=== PATIENT | female | born 1955 | race Caucasian/White ===

== ENCOUNTER → 2022-08-20 10:12 | Outpatient (CLI) | payer MEDICARE, OTHER, SELFPAY ==
--- NOTE | ~2022-08-20 | DEXA_ITS ---
Bone Density Report Name: TASHA BOATENG Age: 67 Sex: Female Ethnicity: White Date of : 1955 Indication: osteopenia; seizure disorder; hysterectomy; postmenopausal Referring Provider: Gisela Srivastava Study: Bone densitometry was performed. Exam Date: August 20, 2022 Accession number: [id number] Bone Density: Region BMD T-score Z-score Classification AP Spine (L1-L4) 0.886 -1.5 0.4 Osteopenia Femoral Neck (Left) 0.639 -1.9 -0.3 Osteopenia Total Hip (Left) 0.789 -1.3 0.0 Osteopenia Femoral Neck (Right) 0.804 -0.4 1.2 Normal Total Hip (Right) 0.852 -0.7 0.5 Normal Total Hip Mean 0.821 -1.0 0.3 Normal World Health Organization criteria for BMD impression classify patients as: Normal (T-score at or above -1.0), Osteopenia (T-score between -1.0 and -2.5), or Osteoporosis (T-score at or below -2.5). 10-year Fracture Risk(1): Major Osteoporotic Fracture 10% Hip Fracture 1.5% Reported Risk Factors: [place] (), Neck BMD=0.639, BMI=24.9 (1) FRAX(R) Version 3.08. Fracture probability calculated for an untreated patient. Fracture probability may be lower if the patient has received treatment. Previous Exams: Region Exam Age BMD T-score BMD Change BMD Change Date g/cm2 vs Baseline vs Previous AP Spine(L1-L4) 08/20/2022 67 0.886 -1.5 -0.002 0.012 11/18/2018 63 0.874 -1.6 -0.014 -0.028* 11/09/2013 58 0.901 -1.3 0.013 0.013 04/22/2007 51 0.888 -1.4 Total Hip(Left) 08/20/2022 67 0.789 -1.3 -0.072* -0.060* 11/18/2018 63 0.848 -0.8 -0.013 0.051* 11/09/2013 58 0.797 -1.2 -0.064* -0.064* 04/22/2007 51 0.861 -0.7 Total Hip(Right) 08/20/2022 67 0.852 -0.7 -0.050* 0.008 11/18/2018 63 0.844 -0.8 -0.058* -0.035* 11/09/2013 58 0.879 -0.5 -0.023 -0.023 04/22/2007 51 0.903 -0.3 *Denotes significance at 95% confidence level, LSC for AP Spine = 0.022 g/cm2, LSC for Total Hip = 0.027 g/cm2 Clinical Information Provided by Patient: Has used the following medications: Vitamin D, Calcium Has the following medical conditions: Any Seizure Disorders, Hysterectomy Patient maximum height was 65 Menopause Age: 50 No regular weight bearing exercise Does not regularly consume dairy products Drinks caffeinated beverages Onset of menses at age 14 Number of children 3
== END ==
PROVIDERS: PCP Emergency Medicine
DX: Z13.820 Encounter for screening for osteoporosis (principal); M85.88 Other specified disorders of bone density and structure, other site; M85.852 Other specified disorders of bone density and structure, left thigh
CPT/HCPCS: 77080

== ENCOUNTER 2024-12-29 12:53 | Outpatient (CLI) | payer MEDICARE, OTHER, SELFPAY ==
--- NOTE | ~2024-12-29 | DEXA_ITS ---
Bone Density Report Name: TASHA BOATENG Age: 69 Sex: Female Ethnicity: White Date of : 1955 Indication: postmenopausal; screening for osteoporosis; parental hip fracture; height loss; cancer; seizure disorder; hysterectomy; Referring Provider: UNKNOWN, UNKNOWN Study: Bone densitometry was performed. Exam Date: December 29, 2024 Accession number: [id number] Bone Density: Region BMD T-score Z-score Classification AP Spine(L1-L4) 0.909 -1.3 0.7 Osteopenia Femoral Neck (Left) 0.630 -2.0 -0.3 Osteopenia Total Hip (Left) 0.752 -1.6 -0.1 Osteopenia Femoral Neck (Right) 0.682 -1.5 0.2 Osteopenia Total Hip (Right) 0.847 -0.8 0.6 Normal Total Hip Mean 0.799 -1.2 0.3 Osteopenia World Health Organization criteria for BMD impression classify patients as: Normal (T-score at or above -1.0), Osteopenia (T-score between -1.0 and -2.5), or Osteoporosis (T-score at or below -2.5). 10-year Fracture Risk(1): Major Osteoporotic Fracture 19% Hip Fracture 3.2% Reported Risk Factors: [place] (), Neck BMD=0.630, BMI=26.3, parental fracture (1) FRAX(R) Version 3.08. Fracture probability calculated for an untreated patient. Fracture probability may be lower if the patient has received treatment. Clinical Information Provided by Patient: Parent has had a hip fracture Has used the following medications: Calcium Has the following medical conditions: Any Seizure Disorders, Cancer, Hysterectomy Patient maximum height was 65 Menopause Age: 51 No regular weight bearing exercise Does not regularly consume dairy products Drinks caffeinated beverages Onset of menses at age 14 Number of children 3 Impression: The patient has low bone mass, based on the Left Femoral Neck T-score. The patient has an estimated ten-year risk of hip fracture of 3.2% and an estimated ten-year risk of major fracture of 19%, based on the WHO FRAX algorithm. The patient has risk factors, including: parental hip fracture. Discussion: BONE DENSITY IS LOW AT ONE OR MORE SKELETAL SITES. THE PATIENT'S BMD AND CLINICAL RISK FACTORS CONTRIBUTE TO THIS PATIENT'S INCREASED RISK OF FRACTURE. This patient's lowest T-score is low at one or more skeletal sites. It meets the World Health Organization's (WHO) criteria for “low bone mass” (T-score between -1.0 and -2.5). The patient's 10-year risk of hip fracture as calculated by FRAX exceeds the threshold where pharmacological therapy is recommended by the National Osteoporosis Foundation (NOF). However, all treatment decisions require clinical judgment and consideration of individual patient factors, including patient preferences, comorbidities, previous drug use, risk factors not captured in the FRAX model (e.g., frailty, falls, vitamin D deficiency, increased bone turnover, interval significant decline in bone density) and possible under or overestimation of fracture risk by FRAX. The patient should follow a healthful lifestyle (good nutrition with adequate calcium and vitamin D, and appropriate weight-bearing exercise). Follow-Up: Consider a repeat BMD and Vertebral Fracture Assessment (VFA) exam in 2 years or sooner if medically necessary, to reassess this patient's status. Reported by: PHOEBE on 12/29/2024 1:39:00 PM. Reviewed, dictated and finalized at location A.
--- OUTSIDE RECORDS SUMMARY | 2024-12-29 12:58 | XMS_ITS | Patient Health Record ---
Author Organization [facility] Address [address] [place], [place] [id number] Care Team Providers Care Barnworker Groom Name Role Phone FOX NICOLE Unavailable [phone] Katherine Romo Unavailable Unavailable Allergies Allergen (clinical drug ingredient) Drug/Non Drug Allergy documented on EMR Reaction Allergy Type Onset Date Status carbamazepine Tegretol XR rash Drug Allergy A ctive Reason For Referral No Information Medications Medication SIG (Take, Route, Frequency, Duration) Notes Start Date End Date Status 24 HR mirabegron 50 MG Extended Release Oral Tablet [Myrbetriq] ORAL 24 HR mirabegron 50 MG Extended Release Oral Tablet [Myrbetriq]Original Ivshmptrop80 HR mirabegron 50 MG Extended Release Oral Tablet [Myrbetriq] *Reorder from [employer] for eRx and Interaction Alerts* 11/28/2020 Active cetirizine hydrochloride 10 MG Oral Tablet [Zyrtec] ORAL cetirizine hydrochloride 10 MG Oral Tablet [Zyrtec]Original Medicationcetirizine hydrochloride 10 MG Oral Tablet [Zyrtec] *Reorder from [employer] for eRx and Interaction Alerts* 11/28/2020 Active Immunizations Vaccine Route Administration Date Status Comme nts Influenza, high dose seasonal Unknown 05/16/2023 Admini stered Vital Signs Height-cm 165.1 cm 05/23/2024 Weight-kg 70.31 kg 05/23/2024 Height 65 in 05/23/2024 Weight 155 lbs 05/23/2024 BMI 25.79 kg/m2 05/23/2024 Encounters Encounter Location Date Provider Diagnosis [facility] [address] [place], [place] [id number] 05/23/2024 FOX NICOLE Fungal infection of nail B35.1 ; Ingrowing nail L60.0 ; Cellulitis of right toe L03.031 ; Cellulitis of left toe L03.032 ; Pain in right toe(s) M79.674 and Pain in left toe(s) M79.675 [facility] [address] [id number] 06/06/2024 FOX NICOLE Ingrowing nail L60.0 and Encounter for other specified surgical aftercare Z48.89 [facility] [address] [id number] 06/02/2024 FOX NICOLE Assessments Encounter Date Diagnosis (ICD Code) Assessment Notes Treatment Notes Treatment Clinical Notes Section Notes 05/23/2024 Ingrowing nail (ICD-10 - L60.0) 05/23/2024 Fungal infection of nail (ICD-10 - B35.1) 06/06/2024 Ingrowing nail (ICD-10 - L60.0) 06/06/2024 Encounter for other specified surgical aftercare (ICD-10 - Z48.89) 05/23/2024 Cellulitis of right toe (ICD-10 - L03.031) 05/23/2024 Cellulitis of left toe (ICD-10 - L03.032) 05/23/2024 Pain in right toe(s) (ICD-10 - M79.674) 05/23/2024 Pain in left toe(s) (ICD-10 - M79.675) 05/23/2024 Other I discussed various treatment options to the patient for onychocryptosis. I discussed removal of the offending nail border and chemical matrixectomy to prevent regrowth. The patient decided on permanent removal of the nail border. The consent was signed and placed in the patients chart and all questions were answered. Following skin prep, the toe was injected with 3ccs of a 1:1 mixture of 0.5% marcaine plain and 1% lidocaine plain. A digital tournequet was applied and the offending nail was removed. Three applications of 89% phenol for 30 seconds each, were applied to the nail matrix to prevent regrowth. The digital tourniquet was released and the toe was cleansed with isopropyl alcohol. A dry sterile compressive dressing was applied and the patient was given soaking instructions. 06/06/2024 Other I advised the patient that no further treatment is necessary at this time. If the condition should worsen they should call the office. Plan Of Treatment No Information Insurance Providers Payer Name Payer Address Payer Phone Subscriber Number Group Number Insured Name Patient Relationship to Insured Coverage Start Date Coverage End Date Medicare Part B [facility] [address] [place] [phone] [id number] TASHA BOATENG Self - patient is the insured [place] [employer] [address] [place] [address] [id number] TASHA BOATENG Self - patient is the insured
--- OUTSIDE RECORDS SUMMARY | 2024-12-29 12:58 | XMS_ITS | Encounter Summary ---
Author Organization [facility] Address [address] [place] [address] Care Team Providers Care Procurement Professional Name Role Phone Katherine Romo MD Primary Care Provider [phone] Luke Floyd MD Unavailable [phone] Tylor Red MD Primary Care Provider + Iris Da Silva NP Primary Care Provid er Encounter Details Date Type Department Care Team (Late st Contact Info) Description 05/03/2021 Telephone [facility] Radiology [address] [place] [address] Mahendra Chilel MD PhD [address] [place] [address] Social History Tobacco Use Types Packs/Day Years Used Date Smoking Tobacco: Never Comments Unknown Sex and Gender Information Value Date Recorded Sex Assigned at Not on file 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 Gender Identity Not on file Sexual Orientation Not on file documented as of this encounter Plan of Treatment Not on file documented as of this encounter Visit Diagnoses Not on filedocumented in this encounter Care Teams Procurement Professional Relationship Specialty Start Date End Date Katherine Romo MD [address] [address] PCP - General 11/25/16 09/01/22 Tylor Red MD [address] [address] PCP - General Internal Medicine 09/02/22 09/22/24 Iris Da Silva NP [address] [address] PCP - General Family Medicine 09/23/24 Luke Floyd MD [address] [address] Consulting Physician Urology 06/25/22 documented as of this encounter
--- OUTSIDE RECORDS SUMMARY | 2024-12-29 12:58 | XMS_ITS | Referral Summary ---
Author Organization [facility] Address [address] [place] [address] Care Team Providers Care Medical Affairs Leader Name Role Phone Luke Floyd MD Unavailable [phone] Iris Da Silva NP Primary Care Provid er Encounters Date Type Department Care Team Description 10/20/2024 Orders Only Consultants in [address] [place] [phone] Gisela Srivastava MD Senile osteoporosis (Primary Dx) 10/19/2024 Telephone Consultants in [address] [place] [phone] Gisela Srivastava MD bone denisty from Last 3 Months Allergies Active Allergy Reactions Criticality Noted Date Comments Adhesive Tape-Silicones Unknown 12/06/2018 Carbamazepine Rash Medium 12/09/2018 Medications cyanocobalamin, vitamin B-12, 1,000 mcg tablet extended release Take 1,000 mcg by mouth nightly Active magnesium oxide 500 mg capsule 1 daily+1/2tab EOD Active calcium carbonate-vitam in D3 1,500 mg (600mg elemental) -800 unit per tablet Take 1 tablet by mouth daily Active rosuvastatin (CRESTOR) 10 mg tablet 02/07/2024 Active levETIRAcetam (KEPPRA) 1,000 mg tablet Take 1.5 tablets (1,500 mg total) by mouth 2 (two) times a day 270 tablet 3 03/30/2024 Active Active Problems Problem Noted Date Diagnosed Date S/P sacrocolpopexy 06/24/2022 Pre-diabetes 03/10/2022 Midline cystocele 01/31/2022 Overview (01/31/2022): Added automatically from request for surgery [id number] Uterovaginal prolapse, incomplete 01/31/2022 Overview (01/31/2022): Added automatically from request for surgery [id number] Female stress incontinence 01/31/2022 Overview (01/31/2022): Added automatically from request for surgery [id number] 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 Seizure disorder 09/10/2015 Primary malignant neoplasm of brain 08/25/2012 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 Immunizations Immunization Administration Dates Next Due Hep A, Adult 06/09/2014,11/23/2013 Hep A, Unspecified 11/23/2013 IPV 11/23/2013 Influenza, Quadrivalent, Rec ombinant, Egg Free, Preservative Free, Intramuscular 05/29/2017 Influenza, Quadrivalent, Spl it, Intramuscular 06/28/2021,06/22/2020,06/03/2019,06/06,06/17/2016 Influenza, Quadrivalent, Spl it, Preservative Free, Intramuscular 06/28/2021,06/22/2020,06/06/2018 Influenza, Trivalent, IM (MDV) 4,08/23/2013,08/27/2012,07/23 Influenza, Trivalent, Preser vative Free, Intramuscular 05/29/2017,05/17/2016,08/17/2013 Influenza, Unspecified 06/03/2022,05/29/2017 Meningococcal Polysaccharide (Menomune) 11/23/2013 Pfizer SARS-CoV-2 Monovalent Vaccination (12+ Yrs) PURPLE 11/05/2020,10/14/2020 Pfizer Sars-Cov-2 Bivalent V accination (12+ YRS) 06/03/2022 Pneumococcal Conjugate PCV 13 12/18/2015 Pneumococcal Conjugate Pcv20 02/04/2022 Polio, Unspecified 11/23/2013 Tdap 03/17/2023,08/27/2012 Yellow Fever 11/23/2013 ZOSTER LIVE 06/08/2015 Social History Tobacco Use Types Packs/Day Years Used Date Smoking Tobacco: Never Smokeless Tobacco: Never Tobacco Cessation:Counseling Given: Not Answered AUDIT-C Answer Date Recorded Q1: How often do you have a drink containing alcohol? Never 06/24/2022 Q2: How many drinks containi ng alcohol do you have on a typical day when you are drinking? Patient does not drink Q3: How often do you have si x or more drinks on one occasion? 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 Gender Identity Not on file Sexual Orientation Not on file Last Filed Vital Signs Vital Sign Reading Time Taken Comments Blood Pressure 122/83 03/30/2024 10:03 AM CDT Pulse 69 03/30/2024 10:03 AM CDT Temperature 36.3 C (97.3 F) 03/30/2024 10:03 AM CDT Respiratory Rate 18 03/30/2024 10:0 3 AM CDT Oxygen Saturation 96% 03/30/2024 10: 03 AM CDT Inhaled Oxygen Concentration - - Weight 68.9 kg (151 lb 12.8 oz) 024 10:03 AM CDT Height 165.1 cm (5' 5 ) 06/24/2022 6:34 AM SKIDDER DRIVER Body Mass Index 25.26 06/24/2022 6:34 AM SKIDDER DRIVER Plan of Treatment Not on file Medical Devices Implanted Type Area [employer] Social [employer] Tutor Device Identifier Shelf Expiration Date Model / Serial / Lot Shot Stats Dede Upsylon 35.4cm Elongation Profile Lightweight Large Pore Low [id number] - [id number] Implanted:Qty: 1 on 06/24/2022 by Luke Floyd MD at [facility] Mesh N/A: Pelvis [employer] Dede 04/16/2025 [id number] / / [id number] Pessary Ring Bladder [employer] Dede Obtryx Ii Precisionblue Advantage .15mm 22cm Sling Halo Needle [id number] - [id number] Implanted:Qty: 1 on 06/24/2022 by Luke Floyd MD at [facility] N/A: Pelvis [employer] Dede 02/24/2025 [id number] / / [id number] Procedures Procedure Name Priority Date/Time Associated Diagnosis Comments DIAGNOSTIC MAMMOGRAM BILATERAL W JUAN Schedule Routine, Read Routine (OP Routine) 06/10/2024 10:12 AM CDT Other abnormal and inconclusive findings on diagnostic imaging of breast from Last 3 Months or Most Recently Relevant to Health Maintenance Results * Diagnostic Mammogram Bilateral W Juan (06/10/2024 10:12 AM CDT) Anatomical Region Laterality Modality Breast Bilateral Mammography 06/10/2024 11:3 0 AM CDT Impressions 06/10/2024 11:34 AM CDT 1. A cluster of cysts and a complex cyst in the RIGHT breast are stable for 2 years and therefore benign. 2. No mammographic evidence of malignancy in either breast. OVERALL FINAL ASSESSMENT: BI-RADS Category 2: Benign. RECOMMENDATION: Annual screening mammography is recommended. Drs. Velazquez and Mckayla discussed the above findings and recommendations with the patient, who expressed her understanding of the management plan. Dictated by: Ivan Block MD The radiology attending physician has personally reviewed this study, and had reviewed and/or edited this written report and agrees with it. Electronically signed by: Safia Velazquez M.D. Narrative 06/10/2024 11:34 AM CDT EXAMINATION: BILATERAL DIGITAL DIAGNOSTIC MAMMOGRAM INCLUDING CAD AND BILATERAL DIGITAL BREAST TOMOSYNTHESIS; RIGHT BREAST SONOGRAM HISTORY: 68-year-old woman with history of multiple bilateral circumscribed masses with areas of focal asymmetry in the RIGHT breast at the 9:00 and 9:30 positions. COMPARISON: Diagnostic mammograms and ultrasound 06/10/2023, 12/10/2022, 05/28/2022. Screening mammograms 05/22/2022, 01/04/2021. TECHNIQUE: Full field digital mammographic views of BOTH breasts were performed, including computer aided detection (CAD) and BILATERAL digital breast tomosynthesis (DBT). Directed ultrasound evaluation of the RIGHT breast was performed. BREAST PARENCHYMAL COMPOSITION: There are scattered areas of fibroglandular density. MAMMOGRAM FINDINGS: There are fluctuating bilateral circumscribed masses. There is a stable focal asymmetry in the RIGHT breast at the 9:30 position at posterior depth. There is a stable oval circumscribed mass at 9 o'clock position in the RIGHT breast at mid depth. No new mass, architectural distortion, or calcifications suspicious for malignancy in either breast. SONOGRAM FINDINGS: In the RIGHT breast at the 9 o'clock position 3 cm from the nipple, there is a complex circumscribed, hypoechoic mass measuring 1.0 x 0.5 x 0.4 cm (previously 0.8 x 0.4 x 0.3 cm) felt to represent a cluster both cysts. The RIGHT breast at the 9:30 position 10 cm from the nipple, there is a oval circumscribed hypoechoic mass with posterior acoustic enhancement felt to represent a complex cyst measuring 0.5 x 0.2 x 0.4 cm (previously 0.5 x 0.5 x 0.4 cm). Procedure Note Safia Velazquez MD - 06/10/2024 EXAMINATION: BILATERAL DIGITAL DIAGNOSTIC MAMMOGRAM INCLUDING CAD AND BILATERAL DIGITAL BREAST TOMOSYNTHESIS; RIGHT BREAST SONOGRAM HISTORY: 68-year-old woman with history of multiple bilateral circumscribed masses with areas of focal asymmetry in the RIGHT breast at the 9:00 and 9:30 positions. COMPARISON: Diagnostic mammograms and ultrasound 06/10/2023, 12/10/2022, 05/28/2022. Screening mammograms 05/22/2022, 01/04/2021. TECHNIQUE: Full field digital mammographic views of BOTH breasts were performed, including computer aided detection (CAD) and BILATERAL digital breast tomosynthesis (DBT). Directed ultrasound evaluation of the RIGHT breast was performed. BREAST PARENCHYMAL COMPOSITION: There are scattered areas of fibroglandular density. MAMMOGRAM FINDINGS: There are fluctuating bilateral circumscribed masses. There is a stable focal asymmetry in the RIGHT breast at the 9:30 position at posterior depth. There is a stable oval circumscribed mass at 9 o'clock position in the RIGHT breast at mid depth. No new mass, architectural distortion, or calcifications suspicious for malignancy in either breast. SONOGRAM FINDINGS: In the RIGHT breast at the 9 o'clock position 3 cm from the nipple, there is a complex circumscribed, hypoechoic mass measuring 1.0 x 0.5 x 0.4 cm (previously 0.8 x 0.4 x 0.3 cm) felt to represent a cluster both cysts. The RIGHT breast at the 9:30 position 10 cm from the nipple, there is a oval circumscribed hypoechoic mass with posterior acoustic enhancement felt to represent a complex cyst measuring 0.5 x 0.2 x 0.4 cm (previously 0.5 x 0.5 x 0.4 cm). IMPRESSION: 1. A cluster of cysts and a complex cyst in the RIGHT breast are stable for 2 years and therefore benign. 2. No mammographic evidence of malignancy in either breast. OVERALL FINAL ASSESSMENT: BI-RADS Category 2: Benign. RECOMMENDATION: Annual screening mammography is recommended. Drs. Velazquez and Mckayla discussed the above findings and recommendations with the patient, who expressed her understanding of the management plan. Dictated by: Ivan Block MD The radiology attending physician has personally reviewed this study, and had reviewed and/or edited this written report and agrees with it. Electronically signed by: Safia Velazquez M.D. Tylor Red MD IMG MAMMO PROCEDURES Fin al Result from Last 3 Months or Most Recently Relevant to [place] [address] MEDICARE [facility] MEDICARE [facility] MEDIC[facility] [place] [address] [facility] MEDIC[facility] Advance Directives For more information, please contact: [phone] * Full Code (Latest Code Status on File) Date Activated Date Inactivated Comments 06/24/2022 1:33 PM 06/25/2022 9:19 PM Care Teams Medical Affairs Leader Relationship Specialty Start Date End Date Iris Da Silva NP PCP - General Family Medicine 09/23/24 Luke Floyd MD Consulting Physician Urology 06/25/22
--- OUTSIDE RECORDS SUMMARY | 2024-12-29 12:58 | XMS_ITS | Clinical Summary ---
Author Organization [facility] Address [address] [place] [address] Care Team Providers Care Supervisor Electronics Inspection Name Role Phone Luke Floyd MD Unavailable [phone] Iris Da Silva NP Primary Care Provid er Allergies Active Allergy Reactions Criticality Noted Date [...] (01/31/2022): Added automatically from request for surgery [id number] Uterovaginal prolapse, incomplete 01/31/2022 Overview (01/31/2022): Added automatically from request for surgery [id number] Female stress incontinence 01/31/2022 Overview (01/31/2022): Added automatically from request for surgery [id number] 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 Seizure disorder 09/10/2015 Primary malignant neoplasm of brain 08/25/2012 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 Encounters Date Type Department Care Team Description 10/20/2024 Orders Only Consultants in [address] [place] [address] Gisela Srivastava MD Senile osteoporosis (Primary Dx) 10/19/2024 Telephone Consultants in [address] [place] [phone] Gisela Srivastava MD bone denisty from Last 3 Months Immunizations Immunization Administration Dates Next Due Hep [...] 03/17/2023,08/27/2012 Yellow Fever 11/23/2013 ZOSTER LIVE 06/08/2015 Surgical History Surgery Date Site/Laterality Comments APPENDECTOMY CRANIOTOMY X2 for brain tumors RECONSTRUCTIVE SURGERY 08/17/2015 - 08/16/2016 scalp Medical History Medical History Date Comments Personal history of other sp ecified conditions History of fatigue - (Added by TW Conv) Other symptoms and signs inv olving cognitive functions and awareness Cognitive impairment - (Added by TW Conv) PONV (postoperative nausea and vomiting) Family History Medical History Relation Name Comments Prostate cancer Brother Family histo ry of prostate cancer - (Added by TW Conv) Prostate cancer Father Family histo ry of malignant neoplasm of prostate - (Added by TW Conv)/Family history of prostate cancer - (Added by TW Conv) Skin cancer Father Family history of skin cancer - (Added by TW Conv) Hyperlipidemia Neg Hx Relation Name Status Comments Brother Father Social History Tobacco Use Types Packs/Day Years [...] on file 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 Gender Identity Not on file Sexual Orientation Not on file Obstetrics History Last Filed Vital Signs Vital Sign Reading [...] cm (5' 5 ) 06/24/2022 6:34 AM WIND TURBINE TECHNICIAN Body Mass Index 25.26 06/24/2022 6:34 AM WIND TURBINE TECHNICIAN Plan of Treatment Health Maintenance Due Date Last Done Comments Colon Cancer Screening-Colonoscopy 1955 Depression Screening 1955 Hepatitis C Screening 1955 Osteoporosis Screening-Bone Density Scan 1955 Hepatitis B Screening 1974 Zoster Vaccine (2 of 3) 08/03/2015 06/08/2015 Well Visit 65+ 2021 Fall Risk Assessment 06/25/2023 06/25/2022 Covid-19 Vaccine (2023-2 5 season) 2024 06/03/2022, 07/01/2021, 11/05/2020, Additional history exists Breast Cancer Screening-Mammogram 06/10/2025 06/10/2024, 06/10/2023, 05/22/2022, Additional history exists DTaP/Tdap/Td Vaccine (3 - Td or Tdap) 03/17/2033 03/17/2023, 08/27/2012 Pneumococcal vaccine 65+ Completed 02/04/2022, 05/0 10/2015 Influenza Vaccine Completed 05/23/2024, , 06/28/2021, Additional history exists Medical Devices Implanted Type Area Library Media Assistant Device Identifier Shelf Expiration Date Model / Serial / Lot [employer] Dede Upsylon 35.4cm Elongation Profile Lightweight Large Pore Low [id number] - [id number] Implanted:Qty: 1 on 06/24/2022 by Luke Floyd MD at [facility] Mesh N/A: Pelvis [employer] Dede 04/16/2025 [id number] / / [id number] Pessary Ring Bladder [employer] Dede Obtryx Ii Precisionblue Advantage .15mm 22cm Sling Halo Needle [id number] - [id number] Implanted:Qty: 1 on 06/24/2022 by Luke Floyd MD at [facility] N/A: Pelvis [employer] Dede 02/24/2025 [id number] / / [id number] Procedures Procedure Name Priority Date/Time Associated Diagnosis [...] Most Recently Relevant to Health [place] [address] MEDICARE [facility] [place] [address] MEDICARE [employer] [place] Member Subscriber Plan / Payer (Ef fective 2021-Present) Name:Arminda Boateng Relation to Subscriber:Self Name:Arminda Boateng Payer ID:[id number] Group ID:Not on file Type:Linked [employer] Address: [address] [facility] [place] [address] MEDICARE [facility] [place] [address] [employer] MEDIC[employer] Advance Directives For more information, please contact: [phone] * Full Code (Latest Code Status on File) Date Activated Date Inactivated Comments 06/24/2022 1:33 PM 06/25/2022 9:19 PM Care Teams Supervisor Electronics Inspection Relationship Specialty Start Date End Date Iris Da Silva NP PCP - General Family Medicine 09/23/24 Luke Floyd MD Consulting Physician Urology 06/25/22
--- OUTSIDE RECORDS SUMMARY | 2024-12-29 12:59 | XMS_ITS | Data Portability ---
Author Organization [facility] Augusto [facility] Address [address] [address] Care Team Providers Care Garbage Pick Up Worker Name Role Phone BROCK PEREZ Research Nurse Practitioner ALBIN ESPINOZA Urologist [facility] Medical On cologist SAMEERA BEE Primary Care Provider Assessment No assessment recorded. Plan of Treatment Reminders Order Date Submit Date Provider Last Modified By Organization Details Last Modified Time Details Appointments ANNUAL 30 2024 10:00A M MARTIN Nielsen-Funmilayo Not available Not available Not available Lab lipid panel, serum 2024 025 Navut [facility], [address], [place], [address], 12/06/2024 15:55:04 HbA1c (hemoglob in A1c), blood 2024 025 Navut [facility], [address], [place], [address], 12/06/2024 15:55:04 TSH + free T4, serum 2024 025 Navut [facility], [address], [address], [place], [address], 12/06/2024 15:55:04 vitamin D, 25-hydrox y, total, serum 2024 025 Navut [facility], [address], [place], [address], 12/06/2024 15:55:04 CBC w/ auto diff 2024 025 [facility], [address], [place], [address], 12/06/2024 15:55:04 CMP, serum or plasma 2024 025 [facility], [address], [place], [address], 12/06/2024 15:55:04 TSH + free T4, serum 2024 025 QUINTIN [facility], [address], [place], [address], 09/27/2024 04:09:23 HbA1c (hemoglob in A1c), blood 2023 025 [facility], [address], [place], [address], 05/04/2024 17:02:37 CMP, serum or plasma 2023 025 [facility], [address], [place], [address], 05/04/2024 17:02:37 CBC w/ auto diff 2023 025 [facility], [address], [place], [address], 05/04/2024 17:02:37 lipid panel, serum 2023 025 [facility] [address] [facility], [address], [place], [address], 05/04/2024 17:02:37 lipid panel, serum 2023 024 [facility], [address], [address], [place], [address], 05/01/2024 14:36:45 hemoglobi n A1c, QN, blood 2023 024 monserrat 39 [facility], [address], [address], [place], [address], 01/19/2024 18:52:27 CMP, serum or plasma 2023 024 monserrat 39 [facility], [address], [place], [address], 05/01/2024 14:36:45 CBC w/ auto diff 2023 024 wandres [facility], [address], [place], [address], 01/19/2024 12:03:10 Referral podiatris t referral 2023 024 [facility], [address], [address], [place], [address], 05/10/2024 13:05:30 Procedures None recorded. Surgeries None recorded. Imaging US, thyroid [address] [facility] Patient Access Centralized Scheduling, Centralized Scheduling, [address] [facility] , [place], [address], 09/27/2024 11:55:45 Medication Orders lisinopri l 10 mg tablet 2024 025 [facility], [address] [facility], [place], [address], 12/06/2024 15:55:16 lisinopri l 10 mg tablet 2024 025 JOLIET [facility], [address] [facility], [place], [address], 12/06/2024 15:55:10 lisinopri l 10 mg tablet 2024 025 [facility], [address] [place] [address], [address], 11/08/2024 11:25:38 escitalop hunter 10 mg tablet 2024 025 QUINTIN [facility], [address] [place] [address], [address], 11/08/2024 11:22:59 escitalop hunter 10 mg tablet 2024 025 [facility], [address] [place] [address], [address], 09/22/2024 11:49:28 rosuvasta tin 10 mg tablet 2023 024 mwilkinson 39 [facility], [address] [place] [address], [address], 05/05/2024 19:43:53 prednison e 20 mg tablet 2023 024 mwilkinson 39 [facility], [address] [place] [address], [address], 05/01/2024 14:30:46 Patient TargetsNo targets recorded. Patient Instructions Encounter Date Encounter Id Patient Instructions Last Modified By Organization Details Last Modified Time 01/04/2024 [id number] upper respirator y infection (cold): care instructions [email or web address] Not available 01/04/2024 15:26:42 Arminda, - Thank you for your visit - Continue your current medications - Use medications as directed - Drink plenty of fluids - MUCINEX-D FOR CONGESTION/SINUS PRESSURE/EAR PAIN - CONSIDER USING PLAIN ROBITUSSIN, PLAIN MUCINEX, OR CORICIDIN HBP FOR CONGESTION/SINUS PRESSURE/EAR PAIN IF BLOOD PRESSURE IS > 150/90 - CONSIDER TAKING A TABLET OF PREDNISONE THIS AFTERNOON, ALEXIS - Please call if not improving in 72 hours. - Call with any concerns [email or web address] Not available 01/04/2024 15:26:41 05/04/2024 [id number] chronic hives: care instructions [email or web address] Not available 05/04/2024 16:53:10 advance care planning: care instructions [email or web address] Not available 05/04/2024 16:53:10 preventing falls : care instructions [email or web address] Not available 05/04/2024 16:53:10 Medicare Well[facility] Preventive Checklist [email or web address] Not available 05/04/2024 16:53:10 eating healthy foods: care instructions [email or web address] Not available 05/04/2024 16:53:10 AD8 Dementia Screening Interview [email or web address] Not available 05/04/2024 16:53:10 epilepsy: care instructions [email or web address] Not available 05/04/2024 16:53:10 learning about healthy weight [email or web address] Not available 05/04/2024 16:53:10 Arminda, - Thank you for your visit - Continue your current medications - for the rash to your back, continue moisturizer, topical corticosteroids, consider use of topical diphenhydramine/b enadryl - Have your imaging studies done at your earliest convenience - Your results will be available on the portal with any recommendations, or we will call you with them - Return to clinic in one year, AND as needed. - Call with any concerns Immunization recommendations: - Preventive immunization against shingles (herpes zoster) is recommended to reduce risk of occurrence, possible chronic pain, and transmission. Currently this is a two shot regimen - Yearly influenza immunization is recommended, and typically available beginning in mid-April - I highly encourage all who are able to complete an initial immunization series against COVID19, along with boosters as indicated by age or medical history - Consider obtaining an RSV immunization. For more information: https://www.cdc.g ov/vaccines/vpd/r sv/index.html Exercise recommendations: - It is recommended that you do daily aerobic (walking, bicycling, swimming) and resistance exercises (light weight lifting, resistance band stretching) for at least 30 minutes, most days of the week. - If you cannot walk, chair exercises for 10-15 minutes a day would help tremendously. - As little as 15-20 minutes exercise, in one or two sessions a day, is still very helpful to manage/improve your weight and overall health Diet recommendations: - Eat small portion meals, trying not to consume more than 1800 calories a day. - Try to eat not more than 2 servings of carbs (starches) with your meals. - Avoid soft drinks, including regular sodas, fruit juices, and sweetened tea. Drink water instead. - Eat plenty of green and leafy vegetables, including salads. [email or web address] Not available 05/04/2024 16:55:01 11/08/2024 [id number] dash diet: care instructions [email or web address] Not available 11/08/2024 11:35:33 Reason for Referral Revising Clerk Referral for Onyc hogryphosis Referring Physician: Tylor Red, Family Medicine, Encounter Date: 05/04/2024 Results Created Date Observation Date Name Description Value Unit Range Abnormal Flag Note LastModifiedBy Organization Detail LastModifiedTime 04/27/2004/28/2024 LIPID PANEL cholesterol, total 183 mg/dL 100-19 9 Not Available [facility] ([facility]) [address] [place], [address], 04/28/2024 03:55:14 04/27/2004/28/2024 LIPID PANEL triglyceride s 217 mg/dL 0-149 above high normal Not Available [facility] ([facility]) [address] [place], [address], 04/28/2024 03:55:14 04/27/2004/28/2024 LIPID PANEL HDL cholesterol 46 mg/dL >39 Not Available [facility]) [address] [place], [address], 04/28/2024 03:55:14 04/27/20 24 04/28/2024 LIPID PANEL VLDL cholesterol trever 37 mg/dL 5-40 Not Available [facility]) [address] [place], [address], 04/28/2024 03:55:14 04/27/20 24 04/28/2024 LIPID PANEL LDL chol calc ([facility] [place]) 100 mg/dL 0-99 above high normal Not Available [facility] ([facility]) [address] [facility], [place], [address], 04/28/2024 03:55:14 04/27/20 24 04/28/2024 COMP. METAB OLIC PANEL (14) glucose 121 mg/dL 70-99 above high normal Not Available [facility] ([facility]) [address] [place], [address], 04/28/2024 03:55:14 04/27/20 24 04/28/2024 COMP. METAB OLIC PANEL (14) BUN 13 mg/dL 8-27 Not Available [facility] ([facility]) [address] [place], [address], 04/28/2024 03:55:14 04/27/20 24 04/28/2024 COMP. METAB OLIC PANEL (14) creatinine 0.92 mg/dL 0.57-1 .00 Not Available [facility] ([facility]) [address] [place], [address], 04/28/2024 03:55:14 04/27/20 24 04/28/2024 COMP. METAB OLIC PANEL (14) eGFR 68 mL/mi n/1.7 3 >59 Not Available [facility] ([facility]) [address] [place], [address], 04/28/2024 03:55:14 04/27/20 24 04/28/2024 COMP. METAB OLIC PANEL (14) BUN/creatini ne ratio 14 - Not Available [facility] ([facility]) [address] [place], [address], 04/28/2024 03:55:14 04/27/20 24 04/28/2024 COMP. METAB OLIC PANEL (14) sodium 142 mmol/ L 134-14 4 Not Available [facility] ([facility]) [address] [place], [address], 04/28/2024 03:55:14 04/27/20 24 04/28/2024 COMP. METAB OLIC PANEL (14) potassium 4.1 mmol/ L 3.5-5. 2 Not Available [facility] ([facility]) [address] [place], [address], 04/28/2024 03:55:14 04/27/20 24 04/28/2024 COMP. METAB OLIC PANEL (14) chloride 103 mmol/ L 96-106 Not Available [facility] ([facility]) [address] [facility], [place], [address], 04/28/2024 03:55:14 04/27/20 24 04/28/2024 COMP. METAB OLIC PANEL (14) carbon dioxide, total 23 mmol/ L 20-29 Not Available [facility] ([facility]) [address] [place], [address], 04/28/2024 03:55:14 04/27/20 24 04/28/2024 COMP. METAB OLIC PANEL (14) calcium 9.9 mg/dL 8.7-10 .3 Not Available [facility] ([facility]) [address] [place], [address], 04/28/2024 03:55:14 04/27/20 24 04/28/2024 COMP. METAB OLIC PANEL (14) protein, total 7.0 g/dL 6.0-8. 5 Not Available [facility] ([facility]) [address] [place], [address], 04/28/2024 03:55:14 04/27/20 24 04/28/2024 COMP. METAB OLIC PANEL (14) albumin 4.7 g/dL 3.9-4. 9 Not Available [facility] ([facility]) [address] [place], [address], 04/28/2024 03:55:14 04/27/20 24 04/28/2024 COMP. METAB OLIC PANEL (14) globulin, total 2.3 g/dL 1.5-4. 5 Not Available [facility] ([facility]) [address] [place], [address], 04/28/2024 03:55:14 04/27/20 24 04/28/2024 COMP. METAB OLIC PANEL (14) bilirubin, total 0.8 mg/dL 0.0-1. 2 Not Available [facility] ([facility]) [address] [place], [address], 04/28/2024 03:55:14 04/27/20 24 04/28/2024 COMP. METAB OLIC PANEL (14) alkaline phosphatase 60 IU/L 44-121 Not Available [facility] ([facility]) [address] [place], [address], 04/28/2024 03:55:14 04/27/20 24 04/28/2024 COMP. METAB OLIC PANEL (14) AST (SGOT) 26 IU/L 0-40 Not Available [facility] ([facility]) [address] [place], [address], 04/28/2024 03:55:14 04/27/20 24 04/28/2024 COMP. METAB OLIC PANEL (14) ALT (SGPT) 30 IU/L 0-32 Not Available [facility] ([facility]) [address] [place], [address], 04/28/2024 03:55:14 04/27/20 24 04/27/2024 CBC/D IFF AMBIG UOUS DEFAU LT WBC 5.1 x10e3 /uL 3.4-10 .8 Not Available [facility] ([facility]) [address] [place], [address], 04/28/2024 03:55:16 04/27/20 24 04/27/2024 CBC/D IFF AMBIG UOUS DEFAU LT RBC 4.83 x10e6 /uL 3.77-5 .28 Not Available [facility] ([facility]) [address] [facility], [place], [address], 04/28/2024 03:55:16 04/27/20 24 04/27/2024 CBC/D IFF AMBIG UOUS DEFAU LT hemoglobin 15.5 g/dL 11.1-1 5.9 Not Available [facility] ([facility]) [address] [facility], [place], [address], 04/28/2024 03:55:16 04/27/20 24 04/27/2024 CBC/D IFF AMBIG UOUS DEFAU LT hematocrit 46.8 % 34.0-4 6.6 above high normal Not Available [facility] ([facility]) [address] [facility], [place], [address], 04/28/2024 03:55:16 04/27/20 24 04/27/2024 CBC/D IFF AMBIG UOUS DEFAU LT MCV 97 fL 79-97 Not Available [facility] ([facility]) [address] [facility], [place], [address], 04/28/2024 03:55:16 04/27/20 24 04/27/2024 CBC/D IFF AMBIG UOUS DEFAU LT MCH 32.1 pg 26.6-3 3.0 Not Available [facility] ([facility]) [address] [facility], [place], [address], 04/28/2024 03:55:16 04/27/20 24 04/27/2024 CBC/D IFF AMBIG UOUS DEFAU LT MCHC 33.1 g/dL 31.5-3 5.7 Not Available [facility] ([facility]) [address] [facility], [place], [address], 04/28/2024 03:55:16 04/27/20 24 04/27/2024 CBC/D IFF AMBIG UOUS DEFAU LT RDW 11.7 % 11.7-1 5.4 Not Available [facility] ([facility]) [address] [facility], [place], [address], 04/28/2024 03:55:16 04/27/20 24 04/27/2024 CBC/D IFF AMBIG UOUS DEFAU LT platelets 293 x10e3 /uL 150-45 0 Not Available [facility] ([facility]) [address] [facility], [place], [address], 04/28/2024 03:55:16 04/27/20 24 04/27/2024 CBC/D IFF AMBIG UOUS DEFAU LT neutrophils 56 % notest ab. Not Available [facility] ([facility]) [address] [facility], [place], [address], 04/28/2024 03:55:16 04/27/20 24 04/27/2024 CBC/D IFF AMBIG UOUS DEFAU LT lymphs 27 % notest ab. Not Available [facility] ([facility]) [address] [facility], [place], [address], 04/28/2024 03:55:16 04/27/20 24 04/27/2024 CBC/D IFF AMBIG UOUS DEFAU LT monocytes 12 % notest ab. Not Available [facility] ([facility]) [address] [facility], [place], [address], 04/28/2024 03:55:16 04/27/20 24 04/27/2024 CBC/D IFF AMBIG UOUS DEFAU LT eos 4 % notest ab. Not Available [facility] ([facility]) [address] [facility], [place], [address], 04/28/2024 03:55:16 04/27/20 24 04/27/2024 CBC/D IFF AMBIG UOUS DEFAU LT basos 1 % notest ab. Not Available [facility] ([facility]) [address] [facility], [place], [address], 04/28/2024 03:55:16 04/27/20 24 04/27/2024 CBC/D IFF AMBIG UOUS DEFAU LT neutrophils (absolute) 2.8 x10e3 /uL 1.4-7. 0 Not Available [facility] ([facility]) [address] [facility], [place], [address], 04/28/2024 03:55:16 04/27/20 24 04/27/2024 CBC/D IFF AMBIG UOUS DEFAU LT lymphs (absolute) 1.3 x10e3 /uL 0.7-3. 1 Not Available [facility] ([facility]) [address] [facility], [place], [address], 04/28/2024 03:55:16 04/27/20 24 04/27/2024 CBC/D IFF AMBIG UOUS DEFAU LT monocytes(ab solute) 0.6 x10e3 /uL 0.1-0. 9 Not Available [facility] ([facility]) [address] [place], [address], 04/28/2024 03:55:16 04/27/20 24 04/27/2024 CBC/D IFF AMBIG UOUS DEFAU LT eos (absolute) 0.2 x10e3 /uL 0.0-0. 4 Not Available [facility] ([facility]) [address] [place], [address], 04/28/2024 03:55:16 04/27/20 24 04/27/2024 CBC/D IFF AMBIG UOUS DEFAU LT baso (absolute) 0.1 x10e3 /uL 0.0-0. 2 Not Available [facility] ([facility]) [address] [facility], [place], [address], 04/28/2024 03:55:16 04/27/20 24 04/27/2024 CBC/D IFF AMBIG UOUS DEFAU LT immature granulocytes 0 % notest ab. Not Available [facility] ([facility]) [address] [facility], [place], [address], 04/28/2024 03:55:16 04/27/20 24 04/27/2024 CBC/D IFF AMBIG UOUS DEFAU LT immature grans (abs) 0.0 x10e3 /uL 0.0-0. 1 Not Available [facility] ([facility]) [address] [facility], [place], [address], 04/28/2024 03:55:16 04/27/20 24 04/27/2024 CBC/D IFF AMBIG UOUS DEFAU LT hematology comments: - A hand- writt en panel /prof ile was recei jolie from your offic e. In accor dance with the [facility] Ambig uous Test Code Polic y dated February 2003, we have assig catalina CBC with Asia styles/Valerie orona, Test Code #[address] If this is not the testi ng you wishe d to recei ve on this speci men, pleas e conta ct the [facility] Clien t Inqui ry/ Techn ical Servi ashley Depar tment to wolf fy the test order . We appre ciate your busin ess. Not Available [facility] ([facility]) [address] [facility], [place], [address], 04/28/2024 03:55:16 04/27/2004/28/2024 HEMOG LOBIN A1C hemoglobin A1C 6.1 % 4.8-5. 6 above high normal Predi abete s: 5.7 - 6.4 Diabe starr: >6.4 Glyce grant contr ol for adult s with diabe starr: <7.0 Not Available [facility] ([facility]) [address] [facility], [place], [address], 04/28/2024 03:55:16 09/26/1909/27/2024 TSH+F REE T4 TSH 4.800 uIU/m L 0.450- 4.500 above high normal Not Available [facility] ([facility]) [address] [facility], [place], [address], 09/27/2024 04:09:23 09/26/1909/27/2024 TSH+F REE T4 T4,free(dire ct) 1.04 NG/dL 0.82-1 .77 Not Available [facility] ([facility]) [address] [facility], [place], [address], 09/27/2024 04:09:23 06/10/20 24 06/10/2024 US, breas t, unila teral , limit ed No observ ation record ed. [facility] [address] [place], [address], 06/11/2024 10:57:18 06/10/2006/10/2024 MAMMO , diagn ostic , digit al, bilat eral No observ ation record ed. [facility] [address] [facility] [id number], [place], [address], 06/11/2024 10:57:18 09/27/1909/26/2024 US, thyro id No observ ation record ed. [facility] [address] [facility] [place], [address], 09/28/2024 12:49:33 Result Notes None recorded. Problems Name Problem SNOMED Code Status Onset Date Resolution Date Notes Provider Name and Address Organization Details Recorded Time Prediabe starr 860649212 Active 2017 Tylor Red MD Attn: Stanley g,[address] [facility], [place], [address], [place] [facility] 2 16:26:27 Body mass index 25-29 - overweig ht 310707676 Active 2021 Tylor Red MD Attn: Stanley wong,[address] [facility], [place], [address], [place] [facility] 2 16:25:34 Long-ter m drug therapy Active 2021 Tylor Red MD Attn: Stanley wong,[address] [facility], [place], [address], [place] [facility] 2 16:25:43 Crush injury of finger of left hand 02716253425 331768 Completed 202110/29/2022 Tylor Red MD Attn: Stanley wong,[address] [place] [address], [place], [address], [place] [facility] 3 09:16:48 History of oligoden drogliom a of brain 27531987452 9101 Active 2022 Tylor Red MD Attn: Stanley marvin,[address] [facility], [place], [address], [place] [facility] 3 09:12:07 Mallet finger of left hand 17426402752 9103 Completed 202210/29/2022 - saw Dr. Gentile, resoluti on after use of Stax splint Tylor Red MD Attn: Stanley wong,[address] [facility], [place], [address], [place] [facility] 3 09:16:41 Midline cystocel e 013584121 Completed 202210/29/2022 status post total hyst with bso, sacrocol popexy, 8Nov22 Tylor Red MD Attn: Beverlyhitesh wong,[address] [facility], [place], [address], [place] [facility] 3 09:25:49 Incomple te uterovag inal prolapse 123848417 Completed 202210/29/2022 status post total hyst with bso, sacrocol popexy, 8Nov22 Tylor Red MD Attn: Beverlyhitesh wong,[address] [facility], [place], [address], [place] [facility] 3 09:27:07 Female stress incontin ence 70487485 Completed 202210/29/2022 Removal Reason: status post total hyst with bso, sacrocol popexy, 8Nov22 Tylor Red MD Attn: Beverlyhitesh wong,[address] [facility], [place], [address], [place] [facility] 3 09:27:03 Seizure disorder 597545378 Active 2022 Tylor Red MD Attn: Beverlyhitesh wong,[address] [facility], [place], [address], [place] [facility] 3 11:52:30 History of colonosc opy 85277400358 9 Completed 202211/02/2022 [id number] - Ahmed - 10yrfu Tylor Red MD Attn: Stanley marvin,[address] [facility], [place], [address], [place] [facility] 3 23:00:03 Mammogra phy abnormal 641700169 Active 2022 Tylor Red MD Attn: Stanley marvin,[address] [facility], [place], [address], [place] [facility] 4 13:35:36 Acute blephari tis 97406218 Completed 202208/27/2023 Tylor Red MD Attn: Stanley wong,[address] [facility], [place], [address], [place] [facility] 4 13:34:59 Impetigo 17544979 Completed 202208/27/2023 Tylor Red MD Attn: Stanley marvin,[address] [facility], [place], [address], [place] [facility] 4 13:34:47 Hematoma of face 139537185 Completed 202208/27/2023 Tylor Red MD Attn: Stanley wong,[address] [facility], [place], [address], [place] [facility] 4 13:34:40 COVID-19 140016805 Completed 202305/04/2024 Tylor Red MD Attn: Stanley wong,[address] [facility], [place], [address], [place] [facility] 4 16:49:06 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 Tylor Red MD Attn: Stanley wong,[address] [facility], [place], [address], [place] [facility] 4 16:50:35 Chronic urticari a 22258944 Active 2023 Tylor Red MD Attn: Stanley wong,[address] [facility], [place], [address], [place] [facility] 4 16:51:45 Benign essentia l hyperten quinten 7383963 Active 2024 BRYAN NielsenP-C Attn: Stanley wong,[address] [facility], [place], [address], [place] [facility] 5 09:41:08 Mixed hyperlip idemia 107257115 Active 2015 Tylor Red MD Attn: Stanley wong,[address] [facility], [place], [address], [place] [facility] 2 16:26:27 Primary malignan t neoplasm of brain 16772849 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 Davila status post radiatio n therapy complete d 12/08/96 recurre nce on MRI, 2004 repeat left frontal cranioto my 6 with resectio n adjuvan t chemothe rapy, 15 cycles, stopped secondar y to profound fatigue and nausea yearly MRI for monitori ng Tylor Red MD Attn: Stanley wong,[address] [facility], [place], [address], [place] [facility] 3 09:11:36 Arthralg ia of the upper arm 903002659 Completed 201408/10/2015 Tylor Red MD Attn: Stanley wong,[address] [facility], [place], [address], [place] [facility] 3 08:56:03 Prophyla ctic immunoth erapy Completed 201210/29/2022 Tylor Red MD Attn: Stanley wong,[address] [facility], [place], [address], [place] [facility] 3 09:13:01 Internal hordeolu m 290395377 Completed 201401/27/2015 Tylor Red MD Attn: Stanley wong,[address] [facility], [place], [address], [place] [facility] 3 08:56:10 Problem Notes None recorded. Procedures Surgical History Date Name Laterality Status Provider Name and Address Organization Details Recorded Time 06/24/20 22 Hysterectomy/edelmira dder repair completed Chato Lice[place] [facility] 07/30/2022 16:07:29 Removal of brain lesion completed Laureen [place]ill [place] [facility] 06/17/2016 11:11:44 Appendectomy completed Laureen Oneill [place] - [facility] 11:20:22 Imaging Results Imaging Date Name Status LastModified by Organiz ation Details LastModified Time 06/10/2024 US, breast, unilateral, limited completed [facility] [address] [place] [address], [id number], 06/11/2024 10:57:18 06/10/2024 MAMMO, diagnostic, digital, bilateral completed [id number], [place], [address], 06/11/2024 10:57:18 09/26/2024 US, thyroid completed [address] [place], [address], 09/28/2024 12:49:33 Procedure Notes None recorded. Medical Equipment None Reported. Allergies Allergen ID Allergen Name Allergen Category Reaction Reaction Severity Criticality Documentation Date Start Date Code Code System Note Provider Name and Address Organization Details Recorded Time 00832 Tegretol medicatio n rash Not available Not available 06/17/2016 9 RxNorm Laureen carranza [place] Sejal [facility] 6 11:08:44 17988 adhesive tape environme nt,medica tion Not available Not available Not available 06/17/2016 85114 UNK Laureen carranza [place] Sej[place] [facility] 6 11:08:54 Medications Name Sig Start Date Stop Date Status Note LastModified by Organization Details LastModified Time pravastat in sodium 80 mg tabs 06/30 completed Not Available Not Available Not Available amoxicill in/clavul anate potassium 875-125 mg tabs 06/30 completed Not Available Not Available Not Available peg-3350/ nacl/na bicarbona te/kcl 420 gm solr 06/30 completed Not Available Not Available Not Available levetirac etam 1000 mg tabs 06/30 completed Not Available Not Available Not Available prednison e 20 mg tabs 06/30 completed Not Available Not Available Not Available promethaz ine hydrochlo ride 25 mg tabs 06/30 completed Not Available Not Available Not Available myrbetriq 50 mg tb24 06/30 completed Not Available Not Available Not Available Pravachol 40 mg tablet 2 q pm 10/12 completed RxNorm: 788931;A llow Substitu tion: True Not Available Not Available Not Available clindamyc in HCl 300 mg capsule 06/17 completed Not Available Not Available Not Available [id number]|2024-12-29 12:59:00|2024-12-29 12:59:00|XMS_ITS|BKG DAEMON|External Medical Summaries|[id number]|" Encounter Summary Created on: December 29, 2024 Arminda Sotelo : 1955 Sex: Female Author Organization [facility] Address [address] [place] [address] Phone Care Team Providers Care Garbage Pick Up Worker Name Role Phone Albin Espinoza MD Unavailable [phone] Tylor Red MD Primary Care Provider + Sameera Bee NP Primary Care Provid er Encounter Details Date Type Department Care Team (Latest Contact Info) Description 04/28/2024 Orders Only [facility] Scanning, Provider Social History Tobacco Use Types Packs/Day Years Used Date Smoking Tobacco: Never Smokeless Tobacco: Never AUDIT-C Answer Date Recorded Q1: How often [...] on file Legal Sex Female 9:55 PM [employer] Gender Identity Not on file Sexual Orientation Not on file documented as of this encounter Plan of Treatment Not on file documented as of this encounter Procedures Procedure Name Priority Date/Time Associated Diagnosis Comments SCAN - LABS 04/28/2024 documented in this encounter Results * SCAN - LABS (04/28/2024) us Provider Scanning Final Result documented in this encounter Visit Diagnoses Not on filedocumented in this encounter Care Teams Garbage Pick Up Worker Relationship Specialty Start Date End Date Tylor Red MD PCP - General Internal Medicine 09/02/22 09/22/24 Sameera Bee NP PCP - General Family Medicine 09/23/24 Albin Espinoza MD Consulting Physician Urology 06/25/22 documented as of this encounter "
== END 2024-12-29 12:54 | disposition home or self-care (01) ==
LOC: ANHIMG 12:56
PROVIDERS: PCP Family Medicine
DX: M85.89 Other specified disorders of bone density and structure, multiple sites (principal)
CPT/HCPCS: 77080